=== PATIENT | male | born 1965 | race Caucasian/White ===

== ENCOUNTER 2023-06-13 08:05 | Emergency (ER) | payer SELFPAY ==
[2023-06-13 08:15] VITALS: BP 141/101; PULSE 104; RESP 23; TEMP 37.1; O2SAT 96; BMI 34.8
--- NOTE | 2023-06-13 08:31 | EXP.UTC ---
Discharge Plan Disposition Patient Disposition: Home, Self-Care Condition: Good Prescriptions Prescriptions: New ondansetron 4 mg Tablet,Disintegrating 4 mg PO Q8H PRN (Reason: Nausea) Qty: 20 0RF No Action losartan 25 mg Tablet 25 mg PO DAILY Referrals Follow up/Referrals: Sandor Romo [Primary Care Provider] - See instructions Activity Restrictions/Add. Instructions Additional Instructions/Restrictions: Drink extra fluids with and between meals. If you have difficulty drinking, try very small amounts of water or suck on ice chips. ? Avoid fruit juices, as these do not replace minerals and can actually increase diarrhea. ? Children and adults can use sports drinks to replenish electrolytes. Younger children and infants should use products formulated for children, like oral rehydration solutions. ? Eat food in small amounts and let your stomach recover. ? Get lots of rest. You may feel tired or weak. ? No greasy or fried foods for the next 24-48 hours BRAT diet Bananas Rice Apples and [place] ? Make sure to drink plenty of liquids ? Return if needed ? Straight to ER if any life threatening symptoms ? Zofran as prescribed ? Follow up with family doctor in the next 48-72 hours if no improvement or any worsening of symptoms Over the counter Chlorseptic spray may help with sore throat Clinical Impressions Clinical Impression: Nausea & vomiting Qualifiers: Vomiting type: unspecified Qualified Code(s): R11.2 - Nausea with vomiting, unspecified Stand Alone Forms Stand Alone Forms: Work/School Release Instructions Patient Instructions: Sore Throat, Ondansetron, DI for Vomiting -- Adult Discharge ED Provider: Anastasia Olmos [facility] General Stated complaint: vomiting over 24 hours Mode of Arrival: Ambulatory Source of Information: Patient Limitations: No Limitations Time Seen by Provider: 06/13/23 08:31 Description of Symptoms (Recalled from Triage Doc. by RN): PATIENT C/O VOMITING THAT STARTED 299 MORNING. HE ALSO C/O SORE THROAT AND LOSS OF VOICE HEENT Symptoms (Recalled from RN notes): Yes Resp Symptoms (Recalled from RN notes): No Skin Symptoms (Recalled from RN notes): No MS Symptoms (Recalled from RN notes): No Functional Status (Recalled from RN notes): WNL History of Present Illness Provider Complaint: Patient states that he eat out on Tuesday and woke up Tuesday morning vomiting not sure if he may have eaten something bad, States that he has continued to have vomiting throughout Tuesday and vomited this am when he got up States that his throat has been sore and scratchy and hurts when he swallows States that he hasnt taken his blood pressure medication due to the vomiting and not had anything to help with the nausea Denies any other symptoms Related Data Home Medications Medication Instructions Recorded Confirmed losartan 25 mg tablet 25 mg PO DAILY 06/13/23 06/13/23 Previous Rx's Medication Instructions Recorded ondansetron 4 mg disintegrating 4 mg PO Q8H PRN Nausea #20 tabs 06/13/23 tablet Allergies Allergy/AdvReac Type Severity Reaction Status Date / Time No Known Allergies Allergy Verified 06/13/23 08:30 Worker's Comp Is this a Worker's Comp case?: No [facility] Disclaimer: The information contained in this section may have been updated after the patient was seen, as this information can be updated by other users. Medical History (Updated 06/13/23 @ 08:37 by Anastasia Olmos APRN) Hypertension Surgical History (Updated 06/13/23 @ 08:31 by Tess Perez RN) History of tonsillectomy Social History Smoking Status: Smoker, status unknown alcohol intake: never current occupational status: employed Travel in the last 8 weeks: None ROS Obtained: Yes All systems reviewed & no additional complaints except as documented and Yes Systems reviewed as appropriate & no additional complaints except as documented Constitutional Constitutional: Reports system reviewed and no additional complaints, except as documented, Reports as per HPI, Denies body ache, Denies chills, Denies fever(s) and Denies headache(s) ENT Ears, Nose, Mouth, and Throat: Reports system reviewed and no additional complaints, except as documented, Reports as per HPI, Denies headache(s) and Reports sore throat Cardiovascular Cardiovascular: Reports system reviewed and no additional complaints, except as documented, Reports as per HPI and Denies chest pain Respiratory Respiratory: Reports system reviewed and no additional complaints, except as documented and Reports as per HPI Gastrointestinal Gastrointestingal: Reports system reviewed and no additional complaints, except as documented, as per HPI, nausea and vomiting; Denies abdominal pain, belching, bloating, coffee ground emesis, cramping or diarrhea Neurologic Neurologic: Denies headache(s) Physical Exam General General appearance: alert and in no apparent distress ENT ENT exam: Present mucous membranes moist Expanded ENT Exam Throat exam: Present tonsillar erythema; Absent tonsillar exudate Chest Chest inspection: Present normal inspection and symmetric chest wall rise Respiratory Respiratory exam: Present normal lung sounds bilaterally; Absent respiratory distress or wheezes Cardiovascular Cardiovascular exam: Present regular rate, normal rhythm and tachycardia Abdominal Exam Abdominal exam: Present soft, rigidity and normal bowel sounds; Absent distention or tenderness Neurological Exam Neurological exam: Present alert, oriented X3 and normal gait Medical Decision Making Itz Inquiry Pt receiving controlled substance: No Itz was queried for this patient: No Vital Signs: 06/13/23 08:15 Temperature 98.7 F Temperature Source Oral Pulse Rate [Right Brachial] 104 H Respiratory Rate 23 Blood Pressure [Right Arm] 141/101 H Blood Pressure Mean [Right Arm] 114 Blood Pressure Source [Right Arm] Automatic Cuff Blood Pressure Position [Right Arm] Sitting 02 Sat by Pulse Oximetry 96 Oxygen Delivery Method Room Air Lab Data Lab results reviewed: Yes I reviewed the patient's lab results. Medical Decision Narrative: no vomiting after zofran able to keep down gatoraid without difficulty
[2023-06-13 08:38] LABS: UTC Strep Screen (Rapid) Negative (Negative)
[2023-06-13] MEDS: ONDANSETRON 4MG/2ML VIAL 4 MG IM (08:44)
[2023-06-13 09:03] VITALS: BP 141/101; PULSE 104; RESP 23; TEMP 37.1; O2SAT 96
== END 2023-06-13 09:14 | disposition home or self-care (01) ==
PROVIDERS: Emergency Provider Nurse Practitioner; PCP Pediatrics
DX: R11.2 Nausea with vomiting, unspecified (principal); R07.0 Pain in throat; I10 Essential (primary) hypertension; R00.0 Tachycardia, unspecified
CPT/HCPCS: 87880; 96372; 99204; 99212; G0463; J2405

== ENCOUNTER 2024-06-01 12:57 | Outpatient (CLI) | payer SELFPAY ==
--- NOTE | 2024-06-01 13:00 | US_ITS ---
FINAL REPORT TECHNIQUE: Ultrasound images of the kidneys and bladder were obtained. CLINICAL HISTORY: ABNORMAL KIDNEY FUNCTION FINDINGS: The right kidney measures 12.3 cm in length. It is normal in echogenicity. There is no hydronephrosis. The left kidney measures 11.0 cm in length. It is normal in echogenicity. There is no hydronephrosis. Incidental note is made of fatty liver. IMPRESSION: Unremarkable renal ultrasound. Reviewed, Interpreted and Dictated by Alexis Correia MD Transcribed by Adelia Daly Authenticated and [facility]
== END 2024-06-01 23:59 | disposition home or self-care (01) ==
LOC: RAD 12:59
PROVIDERS: PCP Pediatrics; Visit Provider Pediatrics
DX: N18.32 Chronic kidney disease, stage 3b (principal); J45.21 Mild intermittent asthma with (acute) exacerbation; J20.8 Acute bronchitis due to other specified organisms; F17.210 Nicotine dependence, cigarettes, uncomplicated; Z79.899 Other long term (current) drug therapy
CPT/HCPCS: 76770

== ENCOUNTER 2024-08-18 07:58 | Outpatient (CLI) | payer OTHER, SELFPAY ==
[2024-08-18 08:11] LABS: Microscopic, Urine URINE MICROSCOPIC (MICROSCOPIC)
[2024-08-18 08:26] LABS: Basophils # 0.1 K/mm3 (0-0.2); Basophils % 0.9 % (0.1-2.0); Eosinophils # 0.3 K/mm3 (0.0-0.4); Eosinophils % 3.8 % (0.1-12.0); Hematocrit 55.3 % (42.0-52.0); Hemoglobin 17.7 g/dL (14.1-18.0); Lymphocytes # 1.8 K/mm3 (0.7-4.5); Lymphocytes % 26.3 % (10-50); Mean Corpuscular Hemoglobin 28.4 pg (27.0-31.2); Mean Corpuscular Volume 88.6 fl (80-94); Mean Platelet Volume 9.7 fl (7.4-10.4); Monocytes # 0.8 K/mm3 (0.1-1.0); Neutrophils % 56.9 % (37.0-80.0); Platelet Count 249 K/mm3 (142-424); Red Blood Count 6.24 M/mm3 (4.60-6.20); White Blood Count 6.9 K/mm3 (4.8-10.8)
[2024-08-18 09:07] LABS: Appearance,Urine CLEAR (Clear); Bilirubin,Urine Negative (Negative); Blood, Urine Negative (Negative); Color,Urine YELLOW (Yellow); Glucose,Urine (UA) Negative (Negative); Ketones,Urine Negative (Negative); Leukocyte Esterase,Urine Negative (Negative); Nitrate,Urine Negative (Negative); PH,Urine 5.5 (5.0-8.5); Protein,Urine Negative (Negative); Specific Gravity, Urine >= 1.030 (1.005-1.030); Urobilinogen,Urine 0.2 EU/dl (0.2)
[2024-08-18 09:24] LABS: Creatinine,Urine Random 227 mg/dL (Not Estab.)
[2024-08-18 09:30] LABS: Albumin Level 3.9 g/dl (3.5-5.0); Blood Urea Nitrogen 22 mg/dl (9-20); Calcium 9.1 mg/dl (8.4-10.2); Carbon Dioxide 24 mmol/L (22.0-30.0); Chloride 105 mmol/L (98-107); Estimated Glomerular Filt Rate 44 ml/min (>60); GFR (African American) 54 ML/MIN (>60); Glucose 134 mg/dl (74-100); Phosphorous 2.5 mg/dl (2.5-4.5); Potassium 4.5 mmoL/L (3.5-5.1)
[2024-08-18 09:56] LABS: Bacteria,Urine Trace /lpf; RBC,Urine Occasional #/hpf (0-3); Squamous Epithelial Cell,Urine Occasional #/hpf (0-5); WBC,Urine Occasional #/hpf (0-3)
[2024-08-18 10:09] LABS: Anion Gap 12.5 mEq/L (5-15); Sodium 137 mmol/L (136-145)
== END 2024-08-18 23:59 | disposition home or self-care (01) ==
LOC: LAB 08:03
PROVIDERS: PCP Pediatrics; Visit Provider Hospitalist
DX: N28.9 Disorder of kidney and ureter, unspecified (principal)
CPT/HCPCS: 36415; 80069; 81001; 82570; 84156; 85025

== ENCOUNTER 2024-11-09 10:34 | Outpatient (CLI) | payer OTHER, SELFPAY ==
--- NOTE | 2024-11-09 10:36 | CT_ITS ---
FINAL REPORT CLINICAL HISTORY: SCRREENING, 1PPD FOR 30 YEARS, CURRENT SMOKER COMPARISON: None FINDINGS: CT CHEST LOW DOSE SCREENING 58-year-old male, current smoker, [id number] history. HISTORY: Screening exam for lung cancer. DOSE: CTDI vol: 2.90 mGy, DLP: 108.90 mGy*cm TECHNIQUE: Axial CT without IV contrast administration using low dose protocol. This study was performed with techniques to keep radiation doses as low as reasonably achievable, (ALARA). Individualized dose reduction techniques using automated exposure control or adjustment of mA and/or kV according to the patient's size were employed. No acute lung disease is present. No pulmonary lesions are seen suspicious for neoplasm. There is evidence of old calcified granulomatous disease. No pleural or pericardial effusion is seen. No adenopathy or mass lesion is present. IMPRESSION: No evidence of lung cancer LUNG RADS CATEGORY 1 RECOMMENDATION: 12 month LDCT follow up Reviewed, Interpreted and Dictated by Alexis Correia MD Transcribed by Renetta Correia Authenticated and . [facility]
== END 2024-11-09 23:59 | disposition home or self-care (01) ==
LOC: RAD 10:35
PROVIDERS: PCP Pediatrics; Visit Provider Pediatrics
DX: F17.210 Nicotine dependence, cigarettes, uncomplicated (principal); Z13.9 Encounter for screening, unspecified
CPT/HCPCS: 71271

== ENCOUNTER 2025-04-01 08:19 | Emergency (ER) | payer OTHER, SELFPAY ==
[2025-04-01 08:20] VITALS: BP 149/92; PULSE 103; RESP 20; TEMP 37; O2SAT 92; BMI 35.7
[2025-04-01 08:30] VITALS: PULSE 100; O2SAT 93
--- NOTE | 2025-04-01 08:42 | XR_ITS ---
FINAL REPORT TECHNIQUE: Single view chest CLINICAL HISTORY: dyspnea FINDINGS: A single view of the chest was obtained. The heart and mediastinum are within normal limits. The lungs are clear. There is no pneumothorax. IMPRESSION: No acute cardiopulmonary process. Reviewed, Interpreted and Dictated by Jamey Rueda MD Transcribed by Sonia Ricks Authenticated and [facility]
--- NOTE | 2025-04-01 08:45 | ED_ITS ---
Discharge Plan Disposition Patient Disposition: Home, Self-Care Prescriptions Prescriptions: New benzonatate 100 mg capsule 100 mg PO TID PRN (Reason: cough) 5 Days Qty: 20 0RF albuterol sulfate 90 mcg/actuation HFA aerosol inhaler 4 inh inhalation Q4H PRN (Reason: shortness of breath or wheezing) Qty: 8.5 0RF Rx Instructions: 4 puffs every 4 hours for 48 hours then as needed for shortness of breath or wheezing following maiyjdofqzimvba-tjmmiexuf-IT 2-30-10 mg/5 mL syrup 5 ml PO Q6H PRN (Reason: cold symptoms) 7 Days Qty: 118 0RF amoxicillin-pot clavulanate 875-125 mg tablet 1 tab PO BID 7 Days Qty: 14 0RF No Action losartan 25 mg Tablet 25 mg PO DAILY ondansetron 4 mg Tablet,Disintegrating 4 mg PO Q8H PRN (Reason: Nausea) Qty: 20 0RF Referrals Follow up/Referrals: Sandor Romo MD [Primary Care Provider, Medical] - See instructions Connie West MD [Physician, Pulmonology] - See instructions Referral Note: likely new copd Activity Restrictions/Add. Instructions Additional Instructions/Restrictions: Your symptoms today are consistent with a new diagnosis of COPD and an exacerbation associated with that. Please stop smoking as discussed. Antibiotics have been prescribed along the lines of possible bacterial component of the COPD exacerbation. But you are also diagnosed with influenza A which are likely the cause of the majority of your symptoms today. As discussed you are outside of a 48-hour window where Tamiflu would be beneficial therefore this was not prescribed. Please follow-up with our bobbin disker as well as with your furniture designer as discussed your creatinine has elevated from 1.6-2.1 and needs to be rechecked soon. Clinical Impressions Clinical Impression: Acute exacerbation of chronic obstructive pulmonary disease, Influenza A, CKD (chronic kidney disease) Print Language Print Language: Martiniquais Discharge ED Provider: Carlos Dior General Adult HPI General Chief complaint: Upper Respiratory Infection Stated complaint: chills, loss of appetite, mild fever, B/A, H/A Time Seen by Provider: 04/01/25 08:35 History of Present Illness HPI narrative: Patient is a 60-year-old with a 35-year pack history of smoking presents today with shortness of breath and difficulty breathing and fever up to 100.8 last several days. Denies any symptoms also has never been diagnosed with COPD before but has a chronic history of smoking as stated above. No history of any other past medical history aside from hypertension. Related Data Home Medications ?Medication ?Instructions ?Recorded ?Confirmed losartan 25 mg tablet 25 mg PO DAILY 06/13/2305/17 Previous Rx's ?Medication ?Instructions ?Recorded ondansetron 4 mg disintegrating 4 mg PO Q8H PRN Nausea #20 tabs 06/13/23 tablet albuterol sulfate 90 mcg/actuation 4 inh inhalation Q4 H PRN shortness 04/01/25 aerosol inhaler of breath or wheezing #8.5 g suzette amoxicillin 875 mg-potassium 1 tab PO BID 7 days #14 t abs 04/01/25 clavulanate 125 mg tablet benzonatate 100 mg capsule 100 mg PO TID PRN cough 5 d ays #20 04/01/25 caps nrxiivjgtxpejum-fwjhasylpjohgyv-BM 5 ml PO Q6H PRN col d symptoms 7 04/01/25 2 mg-30 mg-10 mg/5 mL oral syrup days #118 mL Allergies Allergy/AdvReac Type Severity Reaction Status Date / Time No Known Allergies Allergy Verified 06/13/23 08:30 [facility] Disclaimer: The information contained in this section may have been updated after the patient was seen, as this information can be updated by other users. Medical History (Updated 04/01/25 @ 10:21 by Carlos Dior MD) Hypertension Surgical History (Updated 06/13/23 @ 08:31 by Tess Perez RN) History of tonsillectomy Social History (Updated 06/13/23 @ 09:05 by Anastasia Olmos APRN) Smoking Status: Current every day smoker alcohol intake: never current occupational status: employed Travel in the last 8 weeks?: None Have you lived/traveled outside US in past 30 days?: No Contact w/someone who lives/traveled outside US past 30 days?: No Exposure to someone with infectious disease in past 14 days?: No Do you have a fever (greater than 100.4 F or 38 C)?: No Have you tested positive for COVID-19?: No Exposed to someone with COVID-19 in past 14 days?: No Do you have a sore throat?: No Do you have a cough?: No Do you have any weakness?: No Do you have any diarrhea?: No Are you experiencing any unusual bleeding?: No Do you have any muscle aches/pain?: No Do you have any abdominal pain?: No Are you experiencing loss of taste or smell?: No ROS Obtained: Yes All systems reviewed & no additional complaints except as documented Physical Exam General General appearance: alert and in no apparent distress Respiratory Respiratory exam: Present wheezes, prolonged expiratory phase and other (Oxygen saturation is 92% on room air) Cardiovascular Cardiovascular exam: Present regular rate Neurological Exam Neurological exam: Present alert and oriented X3 Medical Decision Making Medical Records Screening: Per USPSTF and CDC recommendations, given the prevalence of disease in our region, it is our hospital?s policy to screen for HIV and viral Hepatitis for all patients aged 18 and over and those with ongoing risk factors. Itz Inquiry Pt receiving controlled substance: No Vital Signs: 04/01/25 08:20 04/01/25 08:30 04/01/25 09:49 Temperature 98.6 F Temperature Source Oral Pulse Rate 100 H 98 H Pulse Rate [Right Radial] 103 H Respiratory Rate 20 Blood Pressure 110/76 Blood Pressure [Right Arm] 149/92 H Blood Pressure Mean 87 Blood Pressure Mean [Right Arm] 111 Blood Pressure Source [Right Arm] Automatic Cuff Blood Pressure Position [Right Arm] Sitting 02 Sat by Pulse Oximetry 92 L 93 L 94 L Oxygen Delivery Method Room Air Lab Data Lab results reviewed: Yes I reviewed the patient's lab results. Lab Results 04/01/25 08:24: SARS-CoV-2 (PCR) Not detected, Influenza A Untype (PCR) Detected A, Influenza Type B (PCR) Not detected 04/01/25 08:31: WBC 6.6, RBC 6.21 H, Hgb 18.4 H, Hct 56.4 H, MCV 90.8, MCH 29.3, MCHC 32.3, RDW 14.1, Plt Count 163, MPV 10.8 H, Neut % (Auto) 60.5, Lymph % (Auto) 22.2, [place] % (Auto) 14.4 H, Eos % (Auto) 2.1, Baso % (Auto) 0.3, Neut # (Auto) 4.0, Lymph # (Auto) 1.5, [place] # (Auto) 1.0, Eos # (Auto) 0.1, Baso # (Auto) 0.0, VBG pH 7.28 L, VBG pCO2 43.1, VBG pO2 44.1 H, VBG HCO3 19.9 L, VBG Total CO2 21.3 L, VBG O2 Saturation 78.1 H, VBG Base Excess -6.8 L, VBG Lactic Acid 2.2 H 04/01/25 09:09: Sodium 131 L, Potassium 4.7, Chloride 100, Carbon Dioxide 23, Anion Gap 12.7, BUN 30 H, Creatinine 2.10 H, Estimated Creat Clear 56, Estimated GFR 32 L, Est GFR ( Amer) 39 L, Glucose 106 H, Calcium 8.5, Total Bilirubin 0.7, AST 63 H, ALT 42, Alkaline Phosphatase 84, Troponin I 0.02, N T-Pro-B Natriuret Pep 420 H, Total Protein 7.5, Albumin 4.4, Globulin 3.1, Albumin/Globulin Ratio 1.4 04/01/25 08:31 04/01/25 09:09 Orders (Tests/Meds): ED MEDICATIONS Discontinued Medications Generic Name Dose Route Start Last Admin Trade Name Freq PRN Reason Stop Dose Admin Albuterol/Ipratropium 3 ml 04/01/25 08:41 04/01/25 09:02 Ipratropium/Albuterol 3 Ml Neb IH 04/01/25 08:42 3 ml ONCE ONE Administration Dexamethasone Sodium Phosphate 10 mg 04/01/25 08:41 04/01/25 09:02 Dexamethasone 4mg/Ml 1ml Vial IV 04/01/25 08:42 10 mg ONCE ONE Administration Lactated Ringer's 1,000 mls @ 999 mls/hr 04/01/25 08:45 04/01/25 09:00 Lactated Ringer's 1000 Ml Bag IV 04/01/25 09:45 999 mls/hr .Q1H1M ELISSA Administration Magnesium Sulfate 2 gm in 50 mls @ 50 mls/hr 04/01/25 08:41 04/01/25 09:02 Magnesium Sulfate 2gm/50ml Premix IV 04/01/25 09:40 50 mls/hr ONCE ONE Administration ORDERS Category Date Time Status CT chest wo con Stat Cat Scan 04/01/25 09:02 Taken CXR --portable [XR chest portable] Stat Exams 04/01/25 08:42 Completed BNP [NT Pro Brain Natriuretic Pep.] Stat Lab 04/01/25 09:09 Completed CBC w/Auto Diff [Complete Blood Count Auto Diff] Stat Lab 04/01/25 08:31 Completed CMP [Comprehensive Metabolic Panel] Stat Lab 04/01/25 09:09 Completed Lactate Venous Stat Lab 04/01/25 08:49 Ordered Rapid PCR Covid and Flu A/B Stat Lab 04/01/25 08:24 Completed Trop I [Troponin I] Stat Lab 04/01/25 09:09 Completed Troponin I Q3H Lab 04/01/25 11:45 Ordered Troponin I Q3H Lab 04/01/25 14:45 Ordered Blood Culture Stat Micro 04/01/25 09:14 Received Venous Blood Gas Stat RT 04/01/25 08:31 Completed Medical Decision Narrative: Well-appearing 60-year-old who has prolonged expiratory phase and wheezing likely has undiagnosed COPD presenting today with fever and respiratory illness type symptoms. Could be viral could be bacterial. Will check COVID and flu but we will presume that this is bacterial in nature given the COPD likelihood. Nebs steroids magnesium have been administered will have a low threshold for antibiotics. Cultures have been sent venous blood gas also has been sent. Patient mildly tachycardic and states he has been febrile at home. Not requiring any supplemental oxygen at the moment likely will get him turned around to where he can be discharged. Will give him a referral to pulmonology regardless. Reassessment 10:22 AM patient feeling much better serial respiratory exams are improved. Patient is positive for the flu however after discussing the timeline of the symptoms more he is over 48 hours out and antiviral medications are not indicated in the situation in outpatient setting. Patient is hemoconcentrated also has worsening of his CKD. His creatinine is gone from 2.1 up from 1.6 he is followed by furniture designer for this is made aware of this worsening and will follow-up closely outpatient regarding that. Also with regards to likely new diagnosis of COPD had a discussion about smoking cessation and follow-up with our bobbin disker which he understood. Patient was discharged in improved and stable condition I did go ahead and give him antibiotics to treat any possible bacterial component of the COPD exacerbation as well. However most likely the majority of his symptoms are secondary to the flu. Critical Care Critical Care Time Critical Care Time: Yes Attestation: On 04/01/25, the high probability of a clinically significant, sudden or life threatening deterioration of the following system(s) required my full and direct attention, intervention and personal management. The time I documented below is in addition to time spent performing reported procedures but includes the following listed in this critical care notation. Total Time Total Critical Care Time: 35
[2025-04-01 08:48] LABS: Coronavirus 19, PCR Not Detected (NotDetected); Influenza B, PCR Not Detected (NotDetected)
--- NOTE | 2025-04-01 08:49 | PC.NURSE ---
RT notified of VBG
[2025-04-01 08:55] LABS: VBG HCO3 19.9 mmol/L (23-30); VBG PCO2 43.1 mmol/L (35-51); VBG PH 7.28 mmol/L (7.31-7.41); VBG PO2 44.1 mmol/L (28-40)
[2025-04-01 08:57] LABS: Hematocrit 56.4 % (42.0-52.0); Immature Granulocytes % 0.5 %; Lactate Venous 2.2 mmol/L (0.4-2.0); Mean Corpuscular HGB Conc 32.3 g/dL (31.8-35.4); Mean Corpuscular Hemoglobin 29.3 pg (27.0-31.2); Mean Corpuscular Volume 90.8 fl (80-94); Nucleated Red Blood Cells % 0 %; Platelet Count 163 K/mm3 (142-424); Red Blood Count 6.21 M/mm3 (4.60-6.20); Red Cell Distribution Width-SD 46.8 fL; White Blood Count 6.6 K/mm3 (4.8-10.8)
--- NOTE | 2025-04-01 08:59 | PC.NURSE ---
tried to obtained blood cultures, unsuccessful at this time.
[2025-04-01] MEDS: LACTATED RINGERS 1000ML 1,000 ML 999 ML IV (09:00)
[2025-04-01] MEDS: IPRATROPIUM/ALBUTEROL 3 ML NEB IH (09:02)
[2025-04-01] MEDS: DEXAMETHASONE 4MG/ML 1ML VIAL 10 MG IV (09:02)
[2025-04-01] MEDS: MAGNESIUM SULFATE IN WATER 2 GM/50 ML PIGGYBACK IV (09:02)
--- NOTE | 2025-04-01 09:02 | CT_ITS ---
FINAL REPORT TECHNIQUE: Axial images were obtained through the chest without contrast. Coronal and sagittal multiplanar reconstructions were performed. This study was performed with techniques to keep radiation doses as low as reasonably achievable (ALARA). Individualized dose reduction techniques using automated exposure control or adjustment of mA and/or kV according to the patient's size were employed. CLINICAL HISTORY: fever, cough, dyspnea COMPARISON: None FINDINGS: CT CHEST: Scarring is present in the lingula and left upper lobe. There is no pericardial or pleural effusion. There are a few scattered mediastinal and axillary lymph nodes identified. Limited images of the upper abdomen are unremarkable. There is mild peribronchial wall thickening in the perihilar and lower lobe regions bilaterally, that may be secondary to chronic bronchitis. IMPRESSION: Mild peribronchial wall thickening in the perihilar and lower lobe regions bilaterally, possibly secondary to chronic bronchitis. Reviewed, Interpreted and Dictated by Jamey Rueda MD Transcribed by Renetta Correia Authenticated and . [facility]
[2025-04-01 09:09] LABS: Hemoglobin 18.4 g/dL (14.1-18.0)
[2025-04-01 09:12] LABS: Influenza A, PCR Detected (NotDetected)
[2025-04-01 09:31] LABS: Alanine Aminotransferase 42 U/L (12-78); Albumin Level 4.4 g/dl (3.5-5.0); Albumin/Globulin Ratio 1.4 (1.1-1.8); Alkaline Phosphatase 84 U/L (38-126); Anion Gap 12.7 mEq/L (5-15); Aspartate Amino Transferase 63 U/L (17-59); Bilirubin,Total 0.7 mg/dl (0.2-1.3); Blood Urea Nitrogen 30 mg/dl (9-20); Calcium 8.5 mg/dl (8.4-10.2); Carbon Dioxide 23 mmol/L (22.0-30.0); Chloride 100 mmol/L (98-107); Creatinine Clearance Estimated 56 mL/min (50-200); Creatinine,Serum 2.10 mg/dl (0.66-1.25); Estimated Glomerular Filt Rate 32 ml/min (>60); GFR (African American) 39 ML/MIN (>60); Globulin 3.1 g/dL (1.3-3.2); Glucose 106 mg/dl (74-100); Potassium 4.7 mmoL/L (3.5-5.1); Sodium 131 mmol/L (136-145); Total Protein,Serum 7.5 g/dl (6.3-8.2)
[2025-04-01 09:41] LABS: NT Pro Brain Natriuretic Pep. 420 pg/mL (0-125); Troponin I 0.02 ng/ml (0.00-0.034)
[2025-04-01 09:49] VITALS: BP 110/76; PULSE 98; O2SAT 94
[2025-04-01 10:32] VITALS: BP 122/78; PULSE 96; RESP 20; TEMP 37; O2SAT 93
[2025-04-01 12:57] LABS: Reflex Lactic Add Lactic Reflex
== END 2025-04-01 10:32 | disposition home or self-care (01) ==
PROVIDERS: Emergency Provider Student in an Organized Health Care Education/Training Program; PCP Pediatrics
DX: J10.1 Influenza due to other identified influenza virus with other respiratory manifestations (principal); N18.9 Chronic kidney disease, unspecified; J44.1 Chronic obstructive pulmonary disease with (acute) exacerbation
CPT/HCPCS: 36415; 71045; 71250; 80053; 82803; 83880; 84484; 85025; 87040; 87636; 96361; 96365; 96375; 99284; J1100; J3475; J7120